=== PATIENT | female | born 2000 | race Caucasian/White ===

== ENCOUNTER 2021-04-19 17:03 | Emergency (ER) | payer OTHER ==
[2021-04-19] MEDS ORDERED: Ibuprofen 600 MG Tab PO ONE (17:21)
--- NOTE | 2021-04-19 17:25 | EDM.PDOC ---
ED HPI GENERAL MEDICAL PROBLEM - General Chief Complaint: Chemical Exposure Stated Complaint: INHALED UNK CHEMICALS Time Seen by Provider: 04/19/21 17:12 Source of Information: Reports: Patient History Limitations: Reports: No Limitations - History of Present Illness INITIAL COMMENTS - FREE TEXT/NARRATIVE: 20-year-old female presents to the ED after exposure to noxious fumes from chemicals being used to clean floors in her workplace. 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 She states it was a clump of material which she had not seen before. She got down to smell it and apparently nearly passed out and went down to the floor on her seat. She denies hitting her head but she states it took a few minutes to get her bearings. Since that time she feels her eyes are not focusing properly and she has a bad headache. She denies cough or sputum production. She knows that the chemicals were that of a strong cleaning solution the use for 4 hours and the other one was a strong soap that the use for cleaning floors. She is otherwise healthy and has no history of asthma or any other medical problems. She denies possibility of . Onset: Today, Sudden Onset Date: 04/19/21 Onset Time: 14:20 Duration: Minutes: Location: Reports: Head (Take), Other (Visual acuity changes where she finds it hard to accommodate.) Quality: Reports: Ache, Throbbing Severity: Moderate (Throbbing pounding headache noted 10) Improves with: Reports: None Worsens with: Reports: Movement Context: Denies: Activity, Exercise, Lifting, Sick Contact, Trauma, Other Associated Symptoms: Reports: Headaches, Other (Feels difficulty with her vision particularly looking away and in close up by accommodation seems to be delayed. She does not wear eyeglasses or contacts). Denies: Confusion, Chest Pain, Cou gh, cough w sputum, Diaphoresis, Fever/Chills, Loss of Appetite, Malaise, Nausea/Vomiting, Rash, Seizure, Shortness of Breath, Syncope, Weakness Treatments VP PUBLIC RELATIONS: Reports: Other (see below) (She has not taken any medications.) - Related Data Allergies Allergy/AdvReac Type Severity Reaction Status Date / Time coconut Allergy Severe Airway Verified 04/19/21 17:17 Tightness Home Meds: Home Meds . [No Known Home Meds] 04/19/21 [History] Past Medical History - Past Health History Medical/Surgical History: Denies Medical/Surgical History Social & Family History - Tobacco Use Tobacco Use Status *Q: Never Tobacco User - Recreational Drug Use Recreational Drug Use: No - Living Situation & Occupation Living situation: Reports: Single Occupation: Employed ED ROS GENERAL - Review of Systems Review Of Systems: See Below Constitutional: Reports: Decreased Appetite. Denies: Fever, Chills, Malaise, Weakness, Fatigue, Weight Loss HEENT: Reports: No Symptoms Respiratory: Reports: No Symptoms Cardiovascular: Reports: No Symptoms Endocrine: Reports: No Symptoms GI/Abdominal: Reports: No Symptoms : Reports: No Symptoms Musculoskeletal: Reports: No Symptoms Skin: Reports: No Symptoms Neurological: Reports: No Symptoms Psychiatric: Reports: No Symptoms Hematologic/Lymphatic: Reports: No Symptoms Immunologic: Reports: No Symptoms ED EXAM, BURN/SMOKE INHALATION - Physical Exam Exam: See Below Exam Limited By: No Limitations General Appearance: Alert, WD/WN, Anxious, Mild Distress (Only anxious.), Other (Vital signs show temperature of 36.8. Heart rate 95 and sinus. Respiratory is 18. BP 130/84 with a pulse ox of 100% room air.) Eye Exam: Bilateral Eye: Conjunctival Injection (No conjunctival injection), Normal Inspection (No blepharal pallor or scleral injury icterus.), PERRL (Pupils are equal and respond to light and accommodation.) Mouth/Throat: No Symptoms Reported, Other Head: No Symptoms (Has no chemical taste in her mouth.) Neck: No Symptoms Respiratory: No Respiratory Distress, Lungs Clear, Normal Breath Sounds, No Accessory Muscle Use Cardiovascular: Normal Peripheral Pulses, Regular Rate, Rhythm, No Edema, No Gallop, No Murmur, No Rub Peripheral Pulses: 3+: Carotid (L), Carotid (R), Posterior Tibial (L), Posterior Tibial (R), Dorsalis Pedis (L), Dorsalis Pedis (R) GI/Abdominal: Normal Bowel Sounds, Soft, Non-Tender, No Organomegaly, No Distention Back Exam: Normal Inspection, Full Range of Motion. No: CVA Tenderness (L), CVA Tenderness (R) Extremities: Normal Inspection, Normal Range of Motion, Non-Tender, No Pedal Edema Neurological: Alert, Oriented, CN II-XII Intact, Normal Cognition Psychiatric: Anxious Skin Exam: Warm, Dry, Intact, Normal Color, No Rash Course - Vital Signs Last Recorded V/S: Last Vital Signs Temp 36.8 C 04/19/21 17:12 Pulse 95 04/19/21 17:12 Resp 18 04/19/21 17:12 BP 130/84 04/19/21 17:12 Pulse Ox 100 04/19/21 17:12 - Orders/Labs/Meds Meds: Medications Discontinued Medications Generic Name Dose Route Start Last Admin Trade Name Susan PRN Reason Stop Dose Admin Ibuprofen 600 mg 04/19/21 17:21 04/19/21 17:33 Ibuprofen 600 Mg Tab PO 04/19/21 17:22 600 mg ONETIME ONE Administration - Radiology Interpretation Free Text/Narrative:: 20-year-old female presents to the ED after exposed to noxious fumes due to chemicals being mixed that are being used as 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 She has a new worker that mixed chemicals of unknown quantities which created a clump of chemical within the mop basin. When she got down to smell it it seems like the fumes almost knocked her out as she went down to the floor but did not lose consciousness. She then had to go outside and get some air. Since that time she has developed a bad headache but does not feel any trouble breathing. She does not smell the fumes in her nose or mouth at this time or taste them. It is most likely this was a pneumonia based fumes that took her breath away. I have no way of knowing for sure what the chemicals worsen she does not know either. Your nose and throat exam is normal lungs are clear to station percussion benign abdominal examination. She states she was nauseated but better now. She will be given Motrin 600 mg p.o. for headache relief and Gatorade to drink. She will have 1 view chest x-ray obtained. - Re-Assessments/Exams Free Text/Narrative Re-Assessment/Exam: 04/19/21 18:15 patient is feeling better. Headache is now gone. Chest x-ray was normal. She will therefore be discharged to home. She does not have to go back to work. It sounds like the chemicals that caused the issue have been disposed of in the garbage can not sure that is a suitable area as they may be hazardous to other people. Departure - Departure Time of Disposition: 18:15 Disposition: Home, Self-Care 01 Condition: Fair Clinical Impression: Inhalation of noxious fumes Qualifiers: Encounter type: initial encounter Injury intent: accidental or unintentional Qualified Code(s): T59.91XA - Toxic effect of unspecified gases, fumes and vapors, accidental (unintentional), initial encounter - Discharge Information *PRESCRIPTION DRUG MONITORING PROGRAM REVIEWED*: Not Applicable *COPY OF PRESCRIPTION DRUG MONITORING REPORT IN PATIENT ROBLES: Not Applicable Referrals: PCP,None [Primary Care Provider] - Forms: ED Department Discharge Additional Instructions: Evaluation in the emergency room today in regards to accidental ingestion of noxious fumes in the workplace. This occurred from a combination of chemicals used for cleaning that are not normally mixed together. Without knowing exactly what was mixed I cannot identify what noxious fumes were created but I suspect there may well of been ammonia fumes created which can take your breath away and cause headache and dehydration to the skin and eyes or mucous membranes. It is good that you can no longer smell or taste the chemicals. Chest x-ray done reveals lungs to be clear and they are normal on examination as well. Headache dissipated I believe after getting away from the noxious fumes with Motrin 600 mg in the ED. Suggest going home to have a shower with soap and water make sure all of the chemical is washed off of your skin and your clothing should be of course thrown in the washing machine. My only concern is that the abnormal chemicals that agglutinated or formed a chunk in the mixing pale today are disposed of appropriately so that they could not make any other people sick. At this time no follow-up is required Sepsis Event Note (ED) - Evaluation Sepsis Screening Result: No Definite Risk - Focused Exam Vital Signs: Vital Signs Temp Pulse Resp BP Pulse Ox 04/19/21 17:12 36.8 C 95 18 130/84 100
--- NOTE | 2021-04-19 17:57 | CR ---
Chest: Portable view of the chest was obtained. Comparison: No previous chest imaging is available. Heart size and mediastinum are normal. Lungs are clear with no acute parenchymal change. No acute osseous abnormality is appreciated. Impression: 1. Nothing acute is seen on portable chest x-ray. Diagnostic code #1
== END 2021-04-19 18:28 | disposition home or self-care (01) ==
LOC: JD.ED 17:03
DX: T59.891A Toxic effect of other specified gases, fumes and vapors, accidental (unintentional), initial encounter (principal); Z91.018 Allergy to other foods
CPT/HCPCS: 71045; 99284; A9270; 99283

== ENCOUNTER 2021-05-03 08:21 | Emergency (ER) | payer OTHER ==
--- NOTE | 2021-05-03 10:10 | EDM.PDOC ---
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 Patient states that she took 3 test yesterday which were positive. She has had some intermittent nausea noted over the past week or so. She denies any recent fever chills vomiting diarrhea or urinary symptoms. She states that this morning she woke and took another test and it was negative. She states that she wiped after going to the bathroom and noted mode rate amount of johanne red blood on the toilet paper. She states she sat on the toilet for approximately 5 minutes and states she was dripping blood into the toilet compared it to having a nosebleed. She states there was one clot noted in the toilet that was approximately the size of a nickel. She states she now has brown discharge and is wearing a pad. She states her last regular menstrual period or what she suspects was a menstrual period was on March 22, 2021 and it was just some spotting. She states she had been on the Depo shot and received her last Depo injection on September 17, 2020. She has not had any periods or spotting from that time until March 22. She states she is otherwise healthy. She does not have a primary care provider does not take any prescription medications. She does not smoke, she does not drink alcohol, and she does not use recreational drugs. Lower Abdomen Pain Score (Numeric/FACES): 2 - Related Data Allergies Allergy/AdvReac Type Severity Reaction Status Date / Time coconut Allergy Severe Airway Verified 05/03/21 09:13 Tightness Home Meds: Home Meds . [No Known Home Meds] 04/19/21 [History] Past Medical History - Past Health History Medical/Surgical History: Denies Medical/Surgical History Social & Family History - Tobacco Use Tobacco Use Status *Q: Never Tobacco User - Caffeine Use Caffeine Use: Reports: None - Recreational Drug Use Recreational Drug Use: No - Living Situation & Occupation Living situation: Reports: Single Occupation: Employed ED ROS GENERAL - Review of Systems Review Of Systems: Comprehensive ROS is negative, except as noted in HPI. ED EXAM - Physical Exam Exam: See Below Exam Limited By: No Limitations General Appearance: Alert, WD/WN, No Apparent Distress Ears: Normal External Exam, Hearing Grossly Normal Nose: Normal Inspection Throat/Mouth: Normal Inspection, Normal Lips, Normal Voice, No Airway Compromise Head: Atraumatic Neck: Normal Inspection, Supple Respiratory/Chest: No Respiratory Distress, Lungs Clear, Normal Breath Sounds, No Accessory Muscle Use, Chest Non-Tender Cardiovascular: Normal Peripheral Pulses, Regular Rate, Rhythm, No Edema, No Murmur GI/Abdominal Exam: Normal Bowel Sounds, Soft, Non-Tender, No Distention Rectal Exam: Deferred Back Exam: Normal Inspection Extremities: Normal Inspection Neurological: Alert, Oriented, Normal Cognition Psychiatric: Normal Affect, Normal Mood Lymphatic: No Adenopathy Course - Vital Signs Text/Narrative:: 20-year-old female who presents to the emergency department with complaints of vaginal bleeding after having 3+ test yesterday. She also does have some associated cramping noted with it. States she had bright red bleeding noted for approximately 5 minutes this morning while sitting on the toilet however that has subsided and now just has some brown discharge. She is hemodynamically stable and her exam is unremarkable. Will obtain a serum quantitative hCG, CBC, CMP and a magnesium level. Last Recorded V/S: Last Vital Signs Temp 97.2 F 05/03/21 09:07 Pulse 86 05/03/21 09:07 Resp 20 05/03/21 09:07 BP 123/71 05/03/21 09:07 Pulse Ox 100 05/03/21 09:07 - Orders/Labs/Meds Orders: Active Orders 24 hr Category Date Time Status UA RFX NANCY AND CULT IF INDIC [URIN] Stat Lab 05/03/21 09:39 Ordered Labs: Laboratory Tests 05/03/21 05/03/21 Range/Units 10:05 10:05 WBC 4.36 (3.98-10.04) K/mm3 RBC 4.65 (3.98-5.22) M/mm3 Hgb 13.8 (11.2-15.7) gm/dl Hct 42.0 (34.1-44.9) % MCV 90.3 (79.4-94.8) fl MCH 29.7 (25.6-32.2) pg MCHC 32.9 (32.2-35.5) g/dl RDW Std Deviation 43.8 (36.4-46.3) fL Plt Count 259 (182-369) K/mm3 MPV 9.8 (9.4-12.3) fl Neut % (Auto) 51.9 (34.0-71.1) % Lymph % (Auto) 35.8 (19.3-51.7) % Bates % (Auto) 10.1 (4.7-12.5) % Eos % (Auto) 1.8 (0.7-5.8) Baso % (Auto) 0.2 (0.1-1.2) % Neut # (Auto) 2.26 (1.56-6.13) K/mm3 Lymph # (Auto) 1.56 (1.18-3.74) K/mm3 Bates # (Auto) 0.44 H (0.24-0.36) K/mm3 Eos # (Auto) 0.08 (0.04-0.36) K/mm3 Baso # (Auto) 0.01 (0.01-0.08) K/mm3 Sodium 141 (136-145) mEq/L Potassium 3.9 (3.5-5.1) mEq/L Chloride 108 H (98-107) mEq/L Carbon Dioxide 25 (21-32) mEq/L Anion Gap 11.9 (5-15) BUN 9 (7-18) mg/dL Creatinine 0.8 (0.55-1.02) mg/dL Est Cr Clr Drug Dosing 89.46 mL/min Estimated GFR (MDRD) > 60 (>60) mL/min BUN/Creatinine Ratio 11.3 L (14-18) Glucose 91 (70-99) mg/dL Calcium 9.0 (8.5-10.1) mg/dL Magnesium 2.3 (1.8-2.4) mg/dL Total Bilirubin 0.4 (0.2-1.0) mg/dL AST 24 (15-37) U/L ALT 37 (14-59) U/L Alkaline Phosphatase 71 (46-116) U/L Total Protein 7.2 (6.4-8.2) g/dl Albumin 4.0 (3.4-5.0) g/dl Globulin 3.2 gm/dL Albumin/Globulin Ratio 1.3 (1-2) HCG, Quant < 1.0 mIU/mL - Re-Assessments/Exams Free Text/Narrative Re-Assessment/Exam: 05/03/21 12:26 Hematology is unremarkable, chemistry is unremarkable, hCG less than 1.0 Discussed the case with Dr. Alex and he states that the patient was not ever . test were likely a false positive reading. 05/03/21 12:31 Discussed the results with the patient and she will be discharged home. Departure - Departure Time of Disposition: 12:32 Disposition: Home, Self-Care 01 Condition: Good Clinical Impression: Irregular menstrual bleeding - Discharge Information Referrals: PCP,None [Primary Care Provider] - Forms: ED Department Discharge Additional Instructions: You were seen in the emergency department with vaginal bleeding after having 3 positive tests. Lab studies were completed and your hCG level was less than 1 which is not indicative of . Vaginal bleeding is likely due to your menstrual cycle. Recommend that you go home and rest and drink plenty of fluids. May take Tylenol or ibuprofen for menstrual cramps. Recommend that you follow-up with an TIMBER INSPECTOR as needed. Sepsis Event Note (ED) - Focused Exam Vital Signs: Vital Signs Temp Pulse Resp BP Pulse Ox 05/03/21 09:07 97.2 F 86 20 123/71 100 - My Orders Last 24 Hours: My Active Orders 05/03/21 09:39 UA RFX NANCY AND CULT IF INDIC [URIN] Stat - Assessment/Plan Last 24 Hours: My Active Orders 05/03/21 09:39 UA RFX NANCY AND CULT IF INDIC [URIN] Stat
== END 2021-05-03 13:06 | disposition home or self-care (01) ==
LOC: JD.ED 08:21
DX: N92.6 Irregular menstruation, unspecified (principal); Z91.018 Allergy to other foods
CPT/HCPCS: 36415; 80053; 81001; 83735; 84702; 85025; 87086; 87088; 87186; 99283; 99284